=== PATIENT | male | born 1960 | race Caucasian/White ===

== ENCOUNTER 2018-02-07 03:50 | Inpatient (IN) | payer OTHER ==
[~2018-02-07] VITALS: Ht 193 cm; Wt 120.3 kg
--- NOTE | 2018-02-07 03:57 | ED AMS/SEIZURE/WEAK/DIZZY ---
History of Present Illness General Chief Complaint: Seizure Stated Complaint: BIBA Source: patient, family Exam Limitations: clinical condition Vital Signs & Intake/Output Vital Signs & Intake/Output Vital Signs Date Time Temp Pulse Resp B/P B/P Pulse O2 O2 Flow FiO2 Mean Ox Delivery Rate 02/07 0600 98.4 72 20 131/71 97 Room Air 02/07 0400 97.8 76 20 121/69 93 Room Air Allergies Coded Allergies: Sulfa (Sulfonamide Antibiotics) (UNKNOWN 02/07/18) Reconcile Medications No Known Home Medications Triage Note: PT BIBA FROM HOME C/O SEIZURE? 30 MINS PRIOR TO ARRIVAL PTS STATES SHE AWOKE TO FIND PT IN BED VIOLENTLY SHAKING. PER MEDIC PTS DESCRIBED IT A TONIC CLONIC SEIZURE, UPON MEDIC ARRIVAL PT WAS POSTICTAL A&0X1. PT ARRIVED A&0X2, DISORIENTED TO SOME QUESTIONS. DR SON IN FOR EVAL. BSG PRIOR TO ARRIVAL 133. PREHOSPITAL IV ESTABLISHED IN [facility] #18. Triage Nurses Notes Reviewed? yes Onset: Abrupt Duration: minute(s):, better Timing: single episode today Injury Environment: home Severity: moderate Modifying Factors: Improves With: rest. Associated Symptoms: "He was shaking" HPI: 57 yo gentleman presents with seizure like activity. Per his , "I heard a noise... like he was gasping... and then I saw his arms were straight out and he was shaking... He was foaming at the mouth... Then it stopped and he was breathing funny for awhile." She called 911. The medics arrived and found him confused, slightly somnolent, but en route, he became more conversant and back to his baseline. He notes no trauma, headache, fever, drug or alcohol use. There was no loss of bowel or bladder. He is presently feeling well. Past History Medical History Any Pertinent Medical History? see below for history Surgical History Surgical History: appendectomy, knee surgery Family History Hx Contributory? No Review of Systems Review of Systems Constitutional: Reports: no symptoms. Physical Exam Physical Exam General Appearance: well developed/nourished, no apparent distress, alert, awake , comfortable Comments: Review of Systems - except as otherwise noted in HPI Review of Systems Constitutional:no symptoms. EENTM:no symptoms. Respiratory:no symptoms. Cardiovascular:no symptoms. GI:no symptoms. Genitourinary:no symptoms. Musculoskeletal:no symptoms. Skin:no symptoms. Neurological/Psychological:no symptoms. Hematologic/Endocrine:no symptoms. Immunologic/Allergic:no symptoms. All Other Systems: Reviewed and Negative Physical Exam Physical Exam General Appearance: well developed/nourished, no apparent distress Head: atraumatic, normal appearance Eyes: Bilateral: normal appearance. Ears, Nose, Throat: normal pharynx, normal ENT inspection Neck: normal inspection, supple, full range of motion Respiratory: normal breath sounds, chest non-tender, no respiratory distress, quiet respiration, lungs clear Cardiovascular: regular rate/rhythm Gastrointestinal: normal bowel sounds, soft, non-tender, no organomegaly Back: normal inspection, normal range of motion Extremities: normal inspection, normal capillary refill, normal range of motion, no edema Neurologic/Psych: no motor/sensory deficits, awake, alert, oriented x 3, normal finger-->nose bilaterally, dtr's, strength, light touch normal bilaterally. Skin: intact, normal color, warm/dry Core Measures ACS in differential dx? No CVA/TIA Diagnosis No Sepsis Present: No Sepsis Focused Exam Completed? No Progress Differential Diagnosis: seizure - primary vs secondary Plan of Care: Orders Procedure Date/time Status Nothing by Mouth 02/07 B Active Patient Data 02/07 606 Active Saline Lock 02/08 528 Active Misc Message 02/08 528 Active ED Holding Orders 02/08 528 Active Admit to inpatient 02/08 528 Active Vital Signs 02/08 528 Active Code Status 02/08 528 Active URINE DRUG SCREEN FOR ER ONLY 02/07 358 Active URINALYSIS 02/07 358 Active TROPONIN LEVEL 02/07 358 Complete PROLACTIN 02/07 358 Complete LIPASE 02/07 358 Complete HEPATIC FUNCTION PANEL 02/07 358 Complete ETHANOL 02/07 358 Complete CBC WITHOUT DIFFERENTIAL 02/07 358 Complete BASIC METABOLIC PANEL 02/07 358 Complete AMYLASE 02/07 358 Complete EKG 02/08 352 Active Laboratory Tests 02/07/18 0402: Anion Gap 14, Estimated GFR > 60, BUN/Creatinine Ratio 19.0, Glucose 137 H, Calcium 9.5, Total Bilirubin 0.5, Direct Bilirubin 0.2, AST 25, ALT 28, Alkaline Phosphatase 65, Troponin I < 0.01, Total Protein 6.8, Albumin 4.1, Amylase 99, Lipase 496 H, Prolactin 31.3 H, CBC w Diff NO MAN DIFF REQ, RBC 4.65 L, MCV 93.8, MCH 31.7 H, MCHC 33.8, RDW 13.4, MPV 8.4, Gran % 67.0, Lymphocytes % 25.8 , Monocytes % 4.8, Eosinophils % 2.2, Basophils % 0.2, Absolute Granulocytes 3.7 , Absolute Lymphocytes 1.4, Absolute Monocytes 0.3, Absolute Eosinophils 0.1, Absolute Basophils 0, Serum Alcohol < 10.0 Diagnostic Imaging: Viewed by Me: Radiology Read, CT Scan. Discussed w/RAD: Radiology Read, CT Scan. Radiology Impression: PATIENT: JOSH WILSON PRESENT AGE: 57 PATIENT ACCOUNT NO: [id number] : 60 LOCATION: [facility] ORDERING PHYSICIAN: Fredi Son MD SERVICE DATE: 02/07/18 EXAM TYPE: CAT - CT HEAD WO IV CONTRAST EXAMINATION: CT HEAD WITHOUT CONTRAST CLINICAL INFORMATION: Seizure COMPARISON: None. TECHNIQUE: Contiguous axial imaging was performed from the skull base to vertex without intravenous contrast. DLP: 702 mGy-cm. FINDINGS: There is no evidence of acute intracranial hemorrhage or territorial infarction. No abnormal mass effect or midline shift is seen. Brown to white matter differentiation is well preserved. No extra-axial fluid collections are identified. No hydrocephalus. No significant volume loss. There is no abnormal attenuation within the brain parenchyma. The osseous structures and soft tissues are normal. Mild opacification of the bilateral maxillary sinuses and ethmoid air cells. The mastoid air cells and visualized portions of the paranasal sinuses are otherwise well aerated. IMPRESSION: No acute intracranial pathology. DICTATED BY: Parth Castro MD DATE/TIME DICTATED:[address] MECHANIC:WILLIAM DATE/TIME TRANSCRIBED:02/07/18450 CONFIDENTIAL, DO NOT COPY WITHOUT APPROPRIATE AUTHORIZATION. <Electronically signed in Other Vendor System> SIGNED BY: Gloria RAMSAY,Parth 02/07/18455 CXR Impression: PATIENT: JOSH WILSON PRESENT AGE: 57 PATIENT ACCOUNT NO: [id number] : 60 LOCATION: [facility] ORDERING PHYSICIAN: Fredi Son MD SERVICE DATE: 02/07/18 EXAM TYPE: RAD - XRY- PORTABLE CHEST XRAY EXAMINATION: XR PORTABLE CHEST CLINICAL INFORMATION: Seizure. Syncope. COMPARISON: None TECHNIQUE: Portable frontal view of the chest was obtained. FINDINGS: Lung volumes are low. Retrocardiac opacity. No pleural effusion or pneumothorax. The cardiomediastinal silhouette is prominent. No acute osseous abnormality. IMPRESSION: Retrocardiac opacity is nonspecific. Consider atelectasis, pneumonia, or aspiration. DICTATED BY: Parth Castro MD DATE/TIME DICTATED:02/07/[address] CAR MECHANIC:WILLIAM DATE/TIME TRANSCRIBED:02/07/18417 CONFIDENTIAL, DO NOT COPY WITHOUT APPROPRIATE AUTHORIZATION. <Electronically signed in Other Vendor System> SIGNED BY: Parth Castro MD 02/07/18421 Initial ED EKG: sinus, incomplete rbbb Departure Departure Disposition: HOME OR SELF CARE Condition: Stable Clinical Impression Primary Impression: Seizure Referrals: Lars Dudley DO (PCP/Family) Departure Forms: Customer Survey General Discharge Information Prescriptions: Current Visit Scripts No Known Home Medications Admission Note Spoke With: Radha Maldonado MD Documentation of Exam: Documentation of any treatments & extenuating circumstances including Concerns Regarding Discharge (functional status, medication knowledge or non-compliance, living conditions, etc.) that warrant an admission rather than observation: In the ED, pt had episode of staring to right, with right upward gaze. Unresponsive to verbal stimuli. Episode lasted 3-4 minutes, given Ativan 2mg iv x 1... episode broke... discussed with dr. fabian (neurology) who suggested keppra load and admission for further evaluation. Critical Care Note Critical Care Note Critical Care Time: 30-74 min
[2018-02-07 04:11] LABS: ABSOLUTE BASOPHIL COUNT 0 /CUMM (0.0-0.2); ABSOLUTE EOSINOPHIL COUNT 0.1 /CUMM (0.0-0.7); ABSOLUTE GRANULOCYTE CT 3.7 /CUMM (1.4-6.5); ABSOLUTE LYMPH COUNT 1.4 /CUMM (1.2-3.4); ABSOLUTE MONOCYTE COUNT 0.3 /CUMM (0.10-0.60); BASOPHIL % 0.2 % (0.0-2.0); EOSINOPHIL % 2.2 % (0-5); HEMATOCRIT 43.6 % (42-52); MEAN CORPUSCULAR HGB 31.7 PG (27.0-31.0); MEAN CORPUSCULAR HGB CONC 33.8 G/DL (33.0-37.0); MEAN CORPUSCULAR VOLUME 93.8 FL (80.0-94.0); MEAN PLATELET VOLUME 8.4 FL (7.4-10.4); PLATELET COUNT 197 /CUMM (130-400); RBC DISTRIBUTION WIDTH 13.4 % (11.5-14.5); RED BLOOD CELL CT 4.65 /CUMM (4.70-6.10); WHITE BLOOD CELL COUNT 5.6 /CUMM (4.8-10.8)
--- NOTE | 2018-02-07 04:22 | RADIOLOGY REPORT ---
EXAMINATION: XR PORTABLE CHEST CLINICAL INFORMATION: Seizure. Syncope. COMPARISON: None TECHNIQUE: Portable frontal view of the chest was obtained. FINDINGS: Lung volumes are low. Retrocardiac opacity. No pleural effusion or pneumothorax. The cardiomediastinal silhouette is prominent. No acute osseous abnormality. IMPRESSION: Retrocardiac opacity is nonspecific. Consider atelectasis, pneumonia, or aspiration.
--- NOTE | 2018-02-07 04:56 | CT SCAN REPORT ---
EXAMINATION: CT HEAD WITHOUT CONTRAST CLINICAL INFORMATION: Seizure COMPARISON: None. TECHNIQUE: Contiguous axial imaging was performed from the skull base to vertex without intravenous contrast. DLP: 702 mGy-cm. FINDINGS: There is no evidence of acute intracranial hemorrhage or territorial infarction. No abnormal mass effect or midline shift is seen. Brown to white matter differentiation is well preserved. No extra-axial fluid collections are identified. No hydrocephalus. No significant volume loss. There is no abnormal attenuation within the brain parenchyma. The osseous structures and soft tissues are normal. Mild opacification of the bilateral maxillary sinuses and ethmoid air cells. The mastoid air cells and visualized portions of the paranasal sinuses are otherwise well aerated. IMPRESSION: No acute intracranial pathology.
--- NOTE | 2018-02-07 07:47 | History & Physical ---
Teagan Yu 02/07/18 0746: General Information and HPI MD Statement: I have seen and personally examined JOSH WILSON and documented this H&P. The patient is a 57 year old M who presented with a patient stated chief complaint of [ seizure like activity]. Source of Information: patient, family Exam Limitations: clinical condition History of Present Illness: 57-year-old gentleman former smoker with no significant past medical history and regular follow-up with primary care doctor, brought in by EMS for a witnessed seizure-like activity by his . Patient was slightly lethargic and most of the history was obtained by his who is at bedside. states around 3 AM today she heard a sound and when she looked over she felt some shaking and when she turned on the light she found her having clonic jerking movements of his upper and lower body and shoulder. She also noted some frothing and drooling at the mouth. At that time she did not notice bowel or bladder incontinence. This episode lasted approximately 3 minutes after which he went into a deeper sleep and was not responding to her. She describes his breathing at that time as "weird deep breathing". By the time EMS arrived, he was awake, confused and very slow to speak. He was also noted to be a bit combative when asked to stand and walk. Per he seemed to him seem to have improved by the time he came to the ED In the ED, the ED physician and his observed him having a blanking out episode associated with lip smacking and some garbled speech. On interview denied any history of previous episodes, cannot recall any aura- like symptoms, recent complaints of headaches change in vision, sick contacts, recent fall, syncope recent travel, fever, chills shortness of breath, Palpitations, chest pain, weakness of extremities, tingling, difficulty with speech, history of seizures as a child, traumatic brain injury in the past, sleep deprivation or any stresses. He does drink about 2-3 beers almost daily but has had never had any issues with alcohol withdrawal in the past. Last drink was 2 beers yesterday. Denies drug use. 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 Allergies/Medications Allergies: Coded Allergies: Sulfa (Sulfonamide Antibiotics) (UNKNOWN 02/07/18) Home Med list No Known Home Medications Compliance With Home Meds: GOOD Past History Travel History Traveled to [place] past 21 day No Medical History EENT: NONE Cardiovascular: NONE Respiratory: NONE Gastrointestinal: NONE Hepatic: NONE Renal: NONE Musculoskeletal: NONE Psychiatric: NONE Endocrine: NONE Surgical History Surgical History: appendectomy, knee surgery Past Family/Social History Family History Relations & Conditions if any Relation not specified for: *No pertinent family history Psychosocial History Where do you live? Home Who Do You Live With? spouse Smoking Status: Former Smoker ETOH Use: heavy use Illicit Drug Use: denies illicit drug use Functional Ability ADLs Independent: dressing, eating, toileting, bathing. Ambulation: independent IADLs Independent: shopping, housework, finances, food prep, telephone, transportation , medication admin. Employment History Employment Employed ([employer] o[employer] van cdl truck driver) Review of Systems Review of Systems Constitutional: Denies: chills, diaphoresis, fever, malaise, weakness, unexplained weight loss. Respiratory: Denies: cough, hemoptysis, orthopnea, short of breath, sputum production, stridor, wheezing. GI: Denies: abdominal pain, bloating, constipation, diarrhea, distention, bowel incontinence, melena, nausea, bloody stool, changes in stool, vomiting, steatorrhea. Neurological/Psychological: Reports: see HPI. Exam & Diagnostic Data Last 24 Hrs of Vital Signs/I&O Vital Signs Date Time Temp Pulse Resp B/P B/P Pulse O2 O2 Flow FiO2 Mean Ox Delivery Rate 02/07 0912 98.0 69 20 120/80 95 Room Air 02/07 0746 97.4 71 18 125/59 97 Room Air Room Air 02/07 0600 98.4 72 20 131/71 97 Room Air 02/07 0400 97.8 76 20 121/69 93 Room Air Intake & Output 02/07 1600 02/07 0800 02/07 0000 Intake Total 200 Output Total Balance 200 Intake, IV 200 Patient 252 lb 250 lb Weight Weight Bed scale Reported by Patient Measurement Method Physical Exam General Appearance Alert, Oriented X3, Cooperative, No Acute Distress HEENT Atraumatic, PERRLA, EOMI, Mucous Membr. moist/pink Neck Supple, No JVD Cardiovascular Regular Rate, Normal S1, Normal S2 Lungs Clear to Auscultation, Normal Air Movement Abdomen Normal Bowel Sounds, Soft, No Tenderness Neurological Normal Speech, Strength at 5/5 X4 Ext, Normal Tone, Sensation Intact, Cranial Nerves 3-12 NL, Reflexes 2+ Extremities No Edema Diagnostic Data EKG Results Normal sinus rhythm Assessment/Plan Assessment: 57-year-old gentleman former smoker with no significant past medical history and regular follow-up with primary care doctor, brought in by EMS for a witnessed seizure-like activity by his . In ED vitals are stable with CBC and BEP unremarkable and a noted elevated prolactin level. CT head showed no acute abnormality, chest x-ray shows retrocardiac obesity is nonspecific. Assessment: Witnessed seizure-like activity likely an unprovoked seizure in a patient with no history of seizure disorder as a child. Etiology is unclear at this time. Unlikely to be secondary to alcohol use disorder as his alcohol level is less than 10. Plan: Admit to telemetry floor, vitals per protocol, seizure precautions Patient was loaded with 1 g of Keppra IV in the ED, was given IV Ativan 2 mg We will continue with keppra 500 mg p.o. twice daily Awaiting callback from neurology Follow-up EEG DVT prophylaxis subcu Lovenox Passed bedside swallow eval ,regular diet Full code As Ranked By This Provider Problem List: 1. Seizure Core Measures/Misc (04/16) Acute Coronary Syndrome ACS Diagnosis: No Congestive Heart Failure Congestive Heart Failure Diagnosis No Cerebrovascular Accident CVA/TIA Diagnosis: No VTE (View Protocol) VTE Risk Factors Age>40 No Mechanical VTE Prophylaxis d/t N/A MechProphylax Ordered No VTE Pharm Prophylaxis d/t NA PharmProphylax ordered Sepsis (View protocol) Sepsis Present: No If YES complete Sepsis Event Note If YES complete Sepsis Event Note Huber Jean 02/07/18 1440: Core Measures/Misc (04/16) Sepsis (View protocol) If YES complete Sepsis Event Note If YES complete Sepsis Event Note Attending MD Review Statement Attending Statement Attending MD Statement: examined this patient, discuss w/resident/PA/BRANCH OPERATIONS COORDINATOR, agreed w/resident/PA/BRANCH OPERATIONS COORDINATOR, discussed with family, reviewed EMR data (avail), discussed with nursing, discussed with case mgmt Attending Assessment/Plan: 57 yr old male with pmh of smoking in past( quit 10 years ago), etoh- drinks 2-3 drinks a day was brought in by EMS for siezure at home. noted pt to have jerky movements in morning on waking up with frothing around the mouth which lasted 3 min. No urinary or bladder incontinence. In ER pt had CT head done which was negative andpt was given keppra and ativan in ER. New onset seizure- will get MRI brain. Neuro consult and EEG ordered. we will cont on keppra and will also monitor on telemetry for now. Will get a CXR . His etoh level was negative. he uses marijuana occasionally and did use in the last few days.
[2018-02-07 09:12] VITALS: BP 120/80
[2018-02-07 14:00] VITALS: BP 128/88
--- NOTE | 2018-02-07 16:36 | Cons- Neurology ---
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 There was a postictal state, his first recall was of the EMT crew being in the home, in the ER a second milder seizure occurred and he was admitted. Keppra was started. At present he still feels quite fatigued but denies any further confusion, pain in the shoulders or limbs, focal neurologic symptoms. No prior history of seizures, significant head trauma, family history of epilepsy or known febrile convulsions as an . He admits to usage of alcohol but has never had any withdrawal symptoms, and denied recreational drugs. Allergies/Medications Allergies: Coded Allergies: Sulfa (Sulfonamide Antibiotics) (UNKNOWN 02/07/18) Home Med List: No Known Home Medications Current Medications: Current Medications Sig/Chas Start time Last Medication Dose Route Stop Time Status Admin Acetaminophen 650 MG Q6P PRN 02/07 1045 AC PO Enoxaparin Sodium 40 MG DAILY 02/07 0900 AC 02/07 SC 0956 Levetiracetam 500 MG BID 02/07 2100 AC PO Levetiracetam 1,000 MG Q16M 02/07 0536 DC 02/07 N/A 1 UNIT IV 02/07 0606 0636 Lorazepam 2 MG ONE ONE 02/07 0515 DC 02/07 IV 02/07 0516 0511 Lorazepam 0 .STK-MED ONE 02/07 0510 DC .ROUTE Ondansetron HCl 4 MG ONCE ONE 02/07 0445 DC 02/07 IV 02/07 0446 0442 Ondansetron HCl 0 .STK-MED ONE 02/07 0440 DC .ROUTE Review of Systems Review of Systems: A complete medical systems review revealed only complaints of tiredness and fatigue. There was some nausea earlier which was passed. Headache denied. Past History Travel History Traveled to [place] past 21 day No Medical History Blood Transfusion Hx: No Neurological: seizure EENT: NONE Cardiovascular: NONE Respiratory: NONE Gastrointestinal: NONE Hepatic: NONE Renal: NONE Musculoskeletal: DEG DISCS Psychiatric: NONE Endocrine: NONE Blood Disorders: NONE Cancer(s): NONE Surgical History Surgical History: appendectomy, knee surgery Family History Relations & Conditions If Any: Relation not specified for: *No pertinent family history Psychosocial History Where Do You Live? Home Who Do You Live With? spouse Smoking Status: Former Smoker ETOH Use: heavy use Illicit Drug Use: denies illicit drug use Functional Ability ADLs Independent: dressing, eating, toileting, bathing. Ambulation: independent IADLs Independent: shopping, housework, finances, food prep, telephone, transportation , medication admin. Employment History Employment: Employed ([employer] city bus driver) Exam & Diagnostic Data Vital Signs and I&O Vital Signs Date Time Temp Pulse Resp B/P B/P Pulse O2 O2 Flow FiO2 Mean Ox Delivery Rate 02/07 1400 98.3 79 20 128/88 96 02/07 0912 98.0 69 20 120/80 95 Room Air 02/07 0746 97.4 71 18 125/59 97 Room Air Room Air 02/07 0600 98.4 72 20 131/71 97 Room Air 02/07 0400 97.8 76 20 121/69 93 Room Air Intake & Output 02/07 1600 02/07 0800 02/07 0000 Intake Total 400 200 Output Total 950 Balance -550 200 Intake, IV 200 Intake, Oral 400 Output, Urine 950 Patient 252 lb 250 lb Weight Weight Bed scale Reported by Patient Measurement Method Physical Exam: Patient appears to be in good general medical condition in no distress No murmur, peripheral pulses intact, skin color good, no rashes or ecchymoses Alert, attentive, fully oriented, no language errors or cognitive impairment. No dysarthria. Visual aviles eye movements pupillary light responses and funduscopic unremarkable. Lower cranial nerves normal. No evidence of tongue laceration Motor power and tone normal in the 4 extremities tendon reflexes symmetric without pathologic signs. No abnormalities of coordination. No lateralized sensory loss. Gait testing deferred Last 48 Hours of Lab Results: Laboratory Tests 02/07 02/07 0915 0402 Chemistry Sodium (137 - 145 mmol/L) 140 Potassium (3.5 - 5.1 mmol/L) 4.2 Chloride (98 - 107 mmol/L) 104 Carbon Dioxide (22 - 30 mmol/L) 22 Anion Gap (5 - 16) 14 BUN (9 - 20 mg/dL) 19 Creatinine (0.7 - 1.2 mg/dL) 1.0 Estimated GFR (>60 ml/min) > 60 BUN/Creatinine Ratio (7 - 25 %) 19.0 Glucose (65 - 99 mg/dL) 137 H Calcium (8.4 - 10.2 mg/dL) 9.5 Total Bilirubin (0.2 - 1.3 mg/dL) 0.5 Direct Bilirubin (< 0.4 mg/dL) 0.2 AST (17 - 59 U/L) 25 ALT (21 - 72 U/L) 28 Alkaline Phosphatase (< 127 U/L) 65 Troponin I (<0.11 ng/ml) < 0.01 Total Protein (6.3 - 8.2 g/dL) 6.8 Albumin (3.5 - 5.0 g/dL) 4.1 Amylase (30 - 110 U/L) 99 Lipase (23 - 300 U/L) 496 H Prolactin (3.7 - 17.9 ng/mL) 31.3 H Hematology CBC w Diff NO MAN DIFF REQ WBC (4.8 - 10.8 /CUMM) 5.6 RBC (4.70 - 6.10 /CUMM) 4.65 L Hgb (14.0 - 18.0 G/DL) 14.7 Hct (42 - 52 %) 43.6 MCV (80.0 - 94.0 FL) 93.8 MCH (27.0 - 31.0 PG) 31.7 H MCHC (33.0 - 37.0 G/DL) 33.8 RDW (11.5 - 14.5 %) 13.4 Plt Count (130 - 400 /CUMM) 197 MPV (7.4 - 10.4 FL) 8.4 Gran % (42.2 - 75.2 %) 67.0 Lymphocytes % (20.5 - 51.1 %) 25.8 Monocytes % (1.7 - 9.3 %) 4.8 Eosinophils % (0 - 5 %) 2.2 Basophils % (0.0 - 2.0 %) 0.2 Absolute Granulocytes (1.4 - 6.5 /CUMM) 3.7 Absolute Lymphocytes (1.2 - 3.4 /CUMM) 1.4 Absolute Monocytes (0.10 - 0.60 /CUMM) 0.3 Absolute Eosinophils (0.0 - 0.7 /CUMM) 0.1 Absolute Basophils (0.0 - 0.2 /CUMM) 0 Toxicology Urine Opiates Screen (>2000 NG/ML) < 100 Methadone Screen (>300 NG/ML) < 40 Barbiturate Screen (>200 NG/ML) < 60 Ur Phencyclidine Scrn (>25 NG/ML) < 6.00 Amphetamines Screen (>1000 NG/ML) < 100 U Benzodiazepines Scrn (>200 NG/ML) < 85 Urine Cocaine Screen (>300 NG/ML) < 50 Urine Cannabis Screen (>50 NG/ML) 79.80 H Serum Alcohol (<10 MG/DL) < 10.0 Urines Urine Color (YEL,AMB,STR) YEL Urine Clarity (CLEAR) CLEAR Urine pH (5.0 - 8.0) 6.5 Ur Specific [place] (1.001 - 1.035) 1.025 Urine Protein (NEG,<30 MG/DL) 30 H Urine Ketones (NEG) NEG Urine Nitrite (NEG) NEG Urine Bilirubin (NEG) NEG Urine Urobilinogen (0.1 - 1.0 EU/dl) 0.2 Ur Leukocyte Esterase (NEG) NEG Ur Microscopic SEDIMENT EXAMINED Urine RBC (0 - 5 /HPF) 1-3 Urine WBC (0 - 2 /HPF) RARE Ur Epithelial Cells (NONE,FEW) RARE Urine Bacteria (NEG/NONE) FEW H Urine Hemoglobin (NEG) NEG Urine Glucose (N MG/DL) NEG Imaging/Other Studies: CT scan of head without contrast: There is no evidence of acute intracranial hemorrhage or territorial infarction. No abnormal mass effect or midline shift is seen. Brown to white matter differentiation is well preserved. No extra-axial fluid collections are identified. No hydrocephalus. No significant volume loss. There is no abnormal attenuation within the brain parenchyma. The osseous structures and soft tissues are normal. Mild opacification of the bilateral maxillary sinuses and ethmoid air cells. The mastoid air cells and visualized portions of the paranasal sinuses are otherwise well aerated. IMPRESSION: No acute intracranial pathology Assessment/Plan Assessment: New onset seizures Normal exam and no history suggestive of any particular risk except possible alcohol use Started on Keppra after the second seizure Recommendations: MRI with and without gadolinium EEG Concur with continuation of Keppra 500 mg twice daily If clinically stable after the MRI okay for discharge home on Keppra The patient was instructed against driving until after further evaluation Outpatient follow-up Consult Acknowledgment - Thank you for your consult request.
--- NOTE | 2018-02-07 18:07 | ELECTROENCEPHALOGRAM REPORT ---
Electroencephalogram Report Electroencephalogram Results Date of service: 02/07/18 Attending MD: Ted RAMSAY,Huber Ruiz Tube Teller: Sylvia lagos EEG Number: [id number] Test Utilizes: 10-20 system, 21 lead 18 channel digital recording Pertinent Hx/Physical/Neuro Findings/Clin Diagnosis: New onset seizures Inpatient Medications: Current Medications Sig/Chas Start time Last Medication Dose Route Stop Time Status Admin Acetaminophen 650 MG Q6P PRN 02/07 1045 AC PO Enoxaparin Sodium 40 MG DAILY 02/07 0900 AC 02/07 SC 0956 Levetiracetam 500 MG BID 02/07 2100 AC PO Levetiracetam 1,000 MG Q16M 02/07 0536 DC 02/07 N/A 1 UNIT IV 02/07 06 0636 Lorazepam 2 MG ONE ONE 02/07 0515 DC 02/07 IV 02/07 0516 0511 Lorazepam 0 .STK-MED ONE 02/07 0510 DC .ROUTE Ondansetron HCl 4 MG ONCE ONE 02/07 0445 DC 02/07 IV 02/07 0446 0442 Ondansetron HCl 0 .STK-MED ONE 02/07 0440 DC .ROUTE Interpretation: The background is composed of well formed low to moderate amplitude posterior domimant 10 Hz alpha and very low amplitude frontal beta. No focal, lateralized or epileptiform abnormalities. Hyperventilation and photic stimulation add no further information. Impression: EEG normal, no focal or epileptiform abnormalities found.
--- NOTE | 2018-02-07 18:30 | RADIOLOGY REPORT ---
EXAMINATION: XR CHEST CLINICAL INFORMATION: Question mass or aspiration pneumonia. COMPARISON: Portable single view film this morning. TECHNIQUE: 2 views of the chest were obtained. FINDINGS: There is much better expansion of the lungs. No retrocardiac opacity is seen. The heart size is normal and there is no evidence of CHF. There is a question of a small pulmonary nodule raised in the left suprahilar region projecting over the left 6th posterior rib. CT is recommended for further evaluation. IMPRESSION: Question left upper lobe lung nodule. CT is recommended for further evaluation.
--- NOTE | 2018-02-07 19:12 | MRI REPORT ---
MR BRAIN WITHOUT AND WITH IV CONTRAST CLINICAL INFORMATION: Seizures. Rule out stroke or tumor. COMPARISON: Head CT performed earlier the same day. TECHNIQUE: MRI of the brain was obtained using routine sequences before and after the intravenous administration of 10 mL of Gadavist. FINDINGS: Limited motion degraded study. No definite true parenchymal signal abnormality accounting for artifact. No definite enhancing lesions and no evidence of mesial temporal sclerosis accounting for artifact. There is no hydrocephalus, extra-axial surface collection, or herniation. The major flow voids at the skull base are preserved. There is no acute infarct on diffusion-weighted imaging. There is no intracranial hemorrhage on the gradient recalled echo acquisition. The midline structures are normal. The cerebellar tonsils are normally positioned. The cerebellum and brainstem are normal. The craniocervical junction is normal. Osseous marrow signal intensity is homogenous. The visualized soft tissues are unremarkable. There is mild mucosal thickening within the maxillary sinuses, sphenoid sinuses, and ethmoid air cells bilaterally. IMPRESSION: Limited motion degraded study. No definite true parenchymal signal abnormality nor enhancing lesions accounting for artifact. No mesial temporal sclerosis.
[2018-02-07 22:05] VITALS: BP 100/62
[2018-02-08 07:26] VITALS: BP 100/60
--- NOTE | 2018-02-08 07:29 | PN- Housestaff ---
Edgar Whyte 02/08/18 0729: Subjective Follow-up For: New onset seizures Complaints: no complaints Tele-Events Since Last Visit: Normal sinus rhythm, sinus bradycardia Subjective: Patient was seen and examined. He is alert awake and oriented to time place and person. No acute events overnight. He denied any more episodes of seizures since admission to the hospital. Denied any headache, focal neurologic deficits. Review of Systems Constitutional: Reports: see HPI. Objective Last 24 Hrs of Vital Signs/I&O Vital Signs Date Time Temp Pulse Resp B/P B/P Pulse O2 O2 Flow FiO2 Mean Ox Delivery Rate 02/08 07 97.7 121 15 100/60 96 02/07 2205 97.9 62 15 100/62 95 02/07 1400 98.3 79 20 128/88 96 Intake & Output 02/08 1600 02/08 0800 02/08 0000 Intake Total 220 400 Output Total Balance 220 400 Intake, Oral 220 400 Number 0 Bowel Movements Patient 120.287 kg Weight Physical Exam General Appearance: Alert, Oriented X3, Cooperative, No Acute Distress Other Physical Findings: HEENT Atraumatic, PERRLA, EOMI, Mucous Membr. moist/pink Neck Supple, No JVD Cardiovascular Regular Rate, Normal S1, Normal S2 Lungs Clear to Auscultation, Normal Air Movement Abdomen Normal Bowel Sounds, Soft, No Tenderness Neurological Normal Speech, Strength at 5/5 X4 Ext, Normal Tone, Sensation Intact, Cranial Nerves 3-12 NL, Reflexes 2+ Extremities No Edema Current Medications: Current Medications Sig/Chas Start time Last Medication Dose Route Stop Time Status Admin Acetaminophen 650 MG Q6P PRN 02/07 1045 AC PO Calcium Carbonate 500 MG ONCE ONE 02/07 1815 DC PO 02/07 181 Enoxaparin Sodium 40 MG DAILY 02/07 0900 AC 02/08 SC 0841 Levetiracetam 500 MG BID 02/07 2100 AC 02/08 PO 0836 Assessment/Plan Assessment: 57-year-old gentleman former smoker with no significant past medical history and regular follow-up with primary care doctor, brought in by EMS for a witnessed seizure-like activity by his . In ED vitals are stable with CBC and BEP unremarkable and a noted elevated prolactin level. CT head showed no acute abnormality, chest x-ray shows retrocardiac obesity is nonspecific. Assessment: Witnessed seizure-like activity likely an unprovoked seizure in a patient with no history of seizure disorder as a child. Etiology is unclear at this time. Unlikely to be secondary to alcohol use disorder as his alcohol level is less than 10. EEG was normal. MRA brain was normal. Plan: Admited to telemetry floor vitals per protocol seizure precautions Patient was loaded with 1 g of Keppra IV in the ED, was given IV Ativan 2 mg We will continue with keppra 500 mg p.o. twice daily EEG normal, no focal or epileptiform abnormalities found. MRI brain no definite abnormality was found The patient was instructed against driving until after further evaluation by neurologist. Patient was found to have retrocardiac opacity on chest x-ray. He was advised to follow-up with PCP within a week after discharge to get CAT scan of chest without IV contrast for further evaluation of retrocardiac opacity which was found on chest x-ray DVT prophylaxis subcu Lovenox Passed bedside swallow eval ,regular diet Full code Problem List: 1. Seizure Pain Ratin Pain Location: N/A Pain Goal: Remain pain free Pain Plan: TYLENOL Tomorrow's Labs & Rationales: NONE TedMagalykarrie 02/08/18 1123: Attending MD Review Statement Attending Statement Attending MD Statement: examined this patient, discuss w/resident/PA/STATISTICAL MACHINE SERVICER, agreed w/resident/PA/STATISTICAL MACHINE SERVICER, discussed with family, reviewed EMR data (avail), discussed with nursing, discussed with case mgmt Attending Assessment/Plan: Seizure- no more seizure episodes . MRI and EEG normal. Pt will be dced home on po keppra and will f/u with neuro to get clearance to start back driving. Pt instructed not to drive till cleared by neuro. Also instructed to not drink as it may lower seizure threshold. ? CXR - retrocardiac opacity. instructed to f/u with PCP and get a CT chest as an outpatient. dc home in stable condition.
--- NOTE | 2018-02-08 07:29 | Discharge Summary ---
Visit Information Visit Dates Admission Date: 02/07/18 Discharge Date: 02/08/2018 Hospital Course Course Attending Physician: Ted RAMSAY,Huber Ruiz Primary Care Physician: Lars Dudley DO Hospital Course: 57-year-old gentleman former smoker with no significant past medical history and regular follow-up with primary care doctor, brought in by EMS for a witnessed seizure-like activity by his . In ED vitals are stable with CBC and BEP unremarkable and a noted elevated prolactin level. CT head showed no acute abnormality chest x-ray shows retrocardiac obesity is nonspecific. EEG within normal limit, no focal abnormality was found MRI brain no abnormality found Assessment: Witnessed seizure-like activity likely an unprovoked seizure in a patient with no history of seizure disorder as a child. Etiology is unclear at this time. Unlikely to be secondary to alcohol use disorder as his alcohol level is less than 10. EEG was normal. MRI brain was normal. Plan: She was admitted to telemetry floor given new onset seizures. Vitals were monitored every shift. He was maintained on seizure precautions. He was loaded with 1 g of Keppra IV in the emergency room and Ativan 2 mg. He was started on Keppra 500 mg twice daily. Neurologist on board, recommended EEG and MRA brain which were normal. He was discharged on Keppra 500 mg twice daily with neurology follow-up within a week. The patient was instructed against driving until after further evaluation by neurologist. He was advised to schedule an appointment with the neurologist Dr. Mccrary next week. Patient was found to have retrocardiac opacity on chest x-ray. He was advised to follow-up with PCP within a week after discharge to get CAT scan of chest without IV contrast for further evaluation of retrocardiac opacity which was found on chest x-ray. DVT prophylaxis subcu Lovenox Passed bedside swallow eval ,regular diet Full code Allergies: Coded Allergies: Sulfa (Sulfonamide Antibiotics) (UNKNOWN 02/07/18) Pertinent Lab Results: cxr FINDINGS: There is much better expansion of the lungs. No retrocardiac opacity is seen. The heart size is normal and there is no evidence of CHF. There is a question of a small pulmonary nodule raised in the left suprahilar region projecting over the left 6th posterior rib. CT is recommended for further evaluation. IMPRESSION: Question left upper lobe lung nodule. CT is recommended for further evaluation. mri brain FINDINGS: Limited motion degraded study. No definite true parenchymal signal abnormality accounting for artifact. No definite enhancing lesions and no evidence of mesial temporal sclerosis accounting for artifact. There is no hydrocephalus, extra-axial surface collection, or herniation. The major flow voids at the skull base are preserved. There is no acute infarct on diffusion-weighted imaging. There is no intracranial hemorrhage on the gradient recalled echo acquisition. The midline structures are normal. The cerebellar tonsils are normally positioned. The cerebellum and brainstem are normal. The craniocervical junction is normal. Osseous marrow signal intensity is homogenous. The visualized soft tissues are unremarkable. There is mild mucosal thickening within the maxillary sinuses, sphenoid sinuses, and ethmoid air cells bilaterally. IMPRESSION: Limited motion degraded study. No definite true parenchymal signal abnormality nor enhancing lesions accounting for artifact. No mesial temporal sclerosis. Head ct FINDINGS: There is no evidence of acute intracranial hemorrhage or territorial infarction. No abnormal mass effect or midline shift is seen. Brown to white matter differentiation is well preserved. No extra-axial fluid collections are identified. No hydrocephalus. No significant volume loss. There is no abnormal attenuation within the brain parenchyma. The osseous structures and soft tissues are normal. Mild opacification of the bilateral maxillary sinuses and ethmoid air cells. The mastoid air cells and visualized portions of the paranasal sinuses are otherwise well aerated. IMPRESSION: No acute intracranial pathology. Disposition Summary Disposition Principal Diagnosis: New onset seizures Additional Diagnosis: As above Discharge Disposition: home or self care Discharge Instructions General Discharge Information Code Status: Full Code Patient's Diet: As tolerated Patient's Activity: As tolerated Follow-Up Instructions/Appts: The patient was instructed against driving until after further evaluation by neurologist as outpatient. Please follow-up with the neurologist Dr. Mccrary within 1 week after discharge please follow-up with her primary care physician within 1 week after discharge Return to the hospital if you continue to have seizures. Medications at Discharge Discharge Medications: Start taking the following new medications: Levetiracetam (Keppra) 500 MG TABLET 1 Tablet ORAL TWICE DAILY Qty = 60 No Refills Comments: Last Taken: 02/08/18 Time: 08:35 AM Copies To: Lars Dudley DO
[2018-02-08] MEDS ORDERED: KEPPRA500 M1 PO ×2 (07:34→14:18)
--- NOTE | 2018-02-08 07:37 | Patient Discharge Instructions ---
Discharge Instructions General Discharge Information You were seen/treated for: New onset seizures Special Instructions: The patient was instructed against driving until after further evaluation by neurologist as outpatient. Please follow-up with the neurologist Dr. Mccrary within 1 week after discharge please follow-up with her primary care physician within 1 week after discharge Return to the hospital if you continue to have seizures. Diet Continue normal diet: Yes Activity Full Activity/No Limits: Yes Acute Coronary Syndrome Inclusion Criteria At DC or during hospital stay patient has or had the following: ACS DIAGNOSIS No Discharge Core Measures Meds if any: Prescribed or Continued at Discharge Meds if any: NOT Prescribed or Continued at Discharge Congestive Heart Failure Inclusion Criteria At DC or during hospital stay patient has or had the following: CHF DIAGNOSIS No Discharge Core Measures Meds if any: Prescribed or Continued at Discharge Meds if any: NOT Prescribed or Continued at Discharge Cerebrovascular accident Inclusion Criteria At DC or during hospital stay patient has or had the following: CVA/TIA Diagnosis No Discharge Core Measures Meds if any: Prescribed or Continued at Discharge Meds if any: NOT Prescribed or Continued at Discharge Venous thromboembolism Inclusion Criteria VTE Diagnosis No VTE Type NONE VTE Confirmed by (Test) NONE Discharge Core Measures - Per Current guidelines, there needs to be overlap - treatment for the first 5 days of Warfarin therapy. - If discharged on Warfarin prior to 5 days of - overlap therapy, the patient will need to be - assessed for post discharge needs including - *Post discharge parental anticoagulation - *Warfarin and/or parental anticoagulation education - *Follow up date to check INR post discharge At least 5 days overlap therapy as Inpatient No Meds if any: Prescribed or Continued at Discharge Note: Overlap Therapy is Warfarin and Anticoagulant Meds if any: NOT Prescribed or Continued at Discharge
== END 2018-02-08 11:20 | DRG 101 ==
LOC: ERH 03:50 → ERHI 05:28 → 1NO 05:28 → ENRESERV 06:59 → ENTRNSPT 07:54 → EDTRNSPT 08:23 → EDTRNSPTSTS 08:23 → ERHI 08:42 → 1NO 08:43 → CMPTRNSPT 09:00 → ENPENDDIS 02-08 09:28 → 1NO 02-08 11:20
PROVIDERS: Pediatrics
DX: R56.9 Unspecified convulsions (principal); Z87.891 Personal history of nicotine dependence
CPT/HCPCS: 1NP; 70552; 70553; 71045; 71046; 80307; 81001; 93005; 93010; 95816; 96365; 96375; 99291; A9579; G0480; J1650; J1953; J2405